=== PATIENT | male | born 1965 | race Caucasian/White ===

== ENCOUNTER 2022-09-22 09:55 | Inpatient (IN) | payer OTHER ==
[2022-09-22 10:25] VITALS: BMI 18.4
[2022-09-22] MEDS ORDERED: BISMUTH SUBSALICYLATE 524 MG/30 ML PO PRN (11:01)
[2022-09-22] MEDS ORDERED: ONDANSETRON *ODT* 4 MG TABLET SL PRN (11:01)
[2022-09-22] MEDS ORDERED: IBUPROFEN 400 MG TABLET (FP) PO PRN (11:01)
[2022-09-22] MEDS ORDERED: MAGNESIUM HYDROX 2400MG/30ML ORAL SUSPENSION 30 ML CUP PO PRN (11:01)
[2022-09-22] MEDS ORDERED: MAG HYDROX/AL HYDROX/SIMETH 30 ML UNIT-DOSE CUP PO PRN (11:01)
[2022-09-22] MEDS ORDERED: DICYCLOMINE HCL 10 MG CAPSULE PO PRN (11:01)
[2022-09-22] MEDS ORDERED: P-EPHED 60MG/TRIPROLIDI 2.5MG TABLET PO PRN (11:01)
[2022-09-22] MEDS ORDERED: NALOXONE HCL (KLOXXADO) 8 MG SPRAY NS PRN (11:01)
[2022-09-22] MEDS ORDERED: POLYETHYLENE GLYCOL (HEALTHYLAX) 3350 17 GM PACKET PO PRN (11:01)
[2022-09-22] MEDS ORDERED: BENZOCAINE/MENTHOL (CHLORASEPTIC ) LOZENGE MM PRN (11:01)
[2022-09-22] MEDS ORDERED: IBUPROFEN 600 MG TABLET (FP) PO PRN (11:01)
[2022-09-22] MEDS ORDERED: BENZONATATE 200 MG CAPSULE PO PRN (11:01)
[2022-09-22] MEDS ORDERED: LOPERAMIDE HCL 2 MG CAPSULE PO PRN (11:01)
[2022-09-22] MEDS ORDERED: NALOXONE HCL 0.4 MG/ML VIAL IM PRN (11:01)
[2022-09-22] MEDS ORDERED: ACETAMINOPHEN 325 MG TABLET (FP) PO PRN (11:01)
[2022-09-22] MEDS ORDERED: guaiFENesin 600 MG TABLET.ER (FP) PO PRN (11:01)
[2022-09-22] MEDS: hydrOXYzine PAMOATE 25 MG CAPSULE (FP) PO PRN (18:20)
[2022-09-22] MEDS: METHOCARBAMOL 500 MG TABLET PO PRN (18:20)
[2022-09-22] MEDS ORDERED: cloNIDine HCL 0.1 MG TABLET PO PRN (18:51)
[2022-09-22] MEDS ORDERED: methaDONE HCL 10 MG TABLET (FOR DETOX USE ONLY) PO ONE (19:15)
[2022-09-22] MEDS ORDERED: THIAMINE HCL 100 MG TABLET (FP) PO SCH (22:00)
[2022-09-22] MEDS ORDERED: MELATONIN 5 MG TABLETS PO SCH (22:00)
[2022-09-23] MEDS: hydrOXYzine PAMOATE 25 MG CAPSULE (FP) PO PRN (05:26)
[2022-09-23] MEDS: METHOCARBAMOL 500 MG TABLET PO PRN (07:39)
[2022-09-23 09:01] LABS: HEMATOCRIT 29.7 % (35.4-49); MCH 24.8 pg (25.7-33.7); MCHC 33.6 g/dl (32.0-35.9); MEAN CELL VOLUME 73.8 fl (80-96); MEAN PLT VOLUME 7.6 fl (7.5-11.1); PLATELET COUNT 207 10^3/uL (134-434); RBC 4.03 M/mm3 (4.00-5.60); RDW 16.4 % (11.9-15.9); WHITE BLOOD COUNT 3.9 K/mm3 (4.0-10.0)
[2022-09-23 09:06] LABS: CALCIUM 11.5 mg/dL (8.5-10.1)
[2022-09-23 09:09] LABS: BLOOD UREA NITROGEN 23.8 mg/dL (7-18); CREATININE 1.5 mg/dL (0.55-1.3)
[2022-09-23 09:10] LABS: BILIRUBIN,TOTAL 0.4 mg/dL (0.2-1)
[2022-09-23 09:11] LABS: TOT PROT 7.6 g/dl (6.4-8.2)
[2022-09-23 09:47] VITALS: RESP 18
[2022-09-23] MEDS ORDERED: PRENATAL VITAMINS W/ FOLIC ACID TABLET (FP) PO SCH (10:00)
[2022-09-23 13:15] VITALS: BP 137/77; PULSE 73; TEMP 96.9
[2022-09-24] MEDS ORDERED: methaDONE HCL 10 MG TABLET (FOR DETOX USE ONLY) PO ONE (10:00)
[2022-09-26] MEDS ORDERED: methaDONE HCL 10 MG TABLET (FOR DETOX USE ONLY) PO ONE (10:00)
== END 2022-09-23 13:38 | disposition left against medical advice (07) | DRG 770 ==
LOC: YASAS 09:55 → Y3N 11:46
PROVIDERS: ADMIT Allergy & Immunology; ATTEND Surgery
PROC: HZ2ZZZZ Detoxification Services for Substance Abuse Treatment (ICD-10-PCS; principal; 2022-09-22)
DX: F11.23 Opioid dependence with withdrawal (principal); F14.20 Cocaine dependence, uncomplicated; Z87.891 Personal history of nicotine dependence; Z86.19 Personal history of other infectious and parasitic diseases; Z59.01 Sheltered homelessness
CPT/HCPCS: 36415; 80053; 85027; 86780; 87635; 87811